=== PATIENT | female | born 1945 | race Caucasian/White ===

== ENCOUNTER 2021-04-02 07:39 | Inpatient (IN) | payer MEDICARE, OTHER ==
[2021-03-26 14:38] LABS: BASOPHILS % (AUTO) 0.6 % (0-1); EOSINOPHILS # (AUTO) 0.2 X10'3 (0-0.9); EOSINOPHILS % (AUTO) 4.2 % (0-6); LYMPHOCYTES # (AUTO) 1.3 X10'3 (1.1-4.8); LYMPHOCYTES % (AUTO) 23.8 % (21-51); MEAN CORPUSCULAR HEMOGLOBIN 30.8 PG (27.0-31.0); MEAN CORPUSCULAR HGB CONC 34.4 g/dL (33.0-36.5); MEAN CORPUSCULAR VOLUME 89.5 FL (78-98); MEAN PLATELET VOLUME 7.1 FL (7.4-10.4); MONOCYTES # (AUTO) 0.5 X10'3 (0-0.9); MONOCYTES % (AUTO) 9.4 % (2-12); NEUTROPHILS # (AUTO) 3.4 X10'3 (1.8-7.7); PRE OP HEMATOCRIT 33.6 % (35.0-45.0); PRE OP HEMOGLOBIN 11.6 g/dL (12.0-16.0); PRE OP PLATELET COUNT 359 X10'3 (140-440); RED BLOOD COUNT 3.75 X10'6 (4.20-5.60); RED CELL DISTRIBUTION WIDTH 12.8 % (11.5-14.5)
[2021-03-26 14:53] LABS: ALBUMIN 3.9 G/DL (3.4-5.0); ALBUMIN/GLOBULIN RATIO 1.1 (1.1-1.5); ALKALINE PHOSPHATASE 61 IU/L (46-116); BLOOD UREA NITROGEN 12 MG/DL (7-18); BUN/CREATININE RATIO 18.8 (6.6-38.0); CALCIUM 8.8 MG/DL (8.5-10.1); CHLORIDE 104 MMOL/L (99-107); CREATININE 0.64 MG/DL (0.40-0.90); PRE OP ALT 26 U/L (30-65); PRE OP ANION GAP 8 (8-16); PRE OP AST 19 U/L (10-37); PRE OP BILIRUB, TOTAL 0.3 MG/DL (0.0-1.0); PRE OP GLUCOSE 93 MG/DL (70-104); PRE OP POTASSIUM 3.9 MMOL/L (3.4-5.1); PRE OP SODIUM 140 MMOL/L (135-145); TOTAL CARBON DIOXIDE 27.7 MMOL/L (24-32); TOTAL PROTEIN 7.5 G/DL (6.4-8.2); eGFR > 90 ML/MIN
[~2021-04-02] VITALS: Ht 163.8 cm; Wt 56.7 kg
[2021-04-02] VITALS (20 sets, daily range): BP systolic 94–126; BP diastolic 51–78
[~2021-04-02 07:39] MED LIST: ACET-1025 PO; ASPI-612 PO; BIOT1CAP3 PO; CALC-1215 PO; CITA20TA27 PO; DICL20GE TOP; ESTR1VAG VG; IBUP-1984 PO; LAMO100T40 PO; MULT-1085 PO; VANCOMYCIN INJ 1000 MG in NORMAL SALINE 250ml IV.SOLN IV ONE; ceFAZolin 2gm in dextrose, iso 100 ML IV ONE; famotidine 20mg tablet PO ONE; ringers solution, lacted 1,000 ML IV SCH; tranexamic acid 650mg tablet PO ONE
[2021-04-02] MEDS ORDERED: fentaNYL/PF 50MCG/1 ML 2ML syringe ONE (10:22)
[2021-04-02] MEDS ORDERED: MIDAZolam 1 MG/ML 5ML VIAL ONE (10:48)
[2021-04-02] MEDS ORDERED: propofol inj 20 ML IV ONE ×2 (10:50)
[2021-04-02] MEDS ORDERED: 0.9 % SODIUM CHLORIDE 10 ML VIAL ONE ×2 (10:50)
[2021-04-02] MEDS ORDERED: ROPIVAcaine 0.5% (5mg/ml) 30ml vial ONE ×2 (10:50→10:51)
[2021-04-02] MEDS ORDERED: ondansetron/PF 4mg/2ml inj ONE (10:51)
[2021-04-02] MEDS ORDERED: dexamethasone sod phosphate 4mg/ml inj. ONE (10:51)
[2021-04-02] MEDS ORDERED: ketorolac trometh. 30mg/ml inj. ONE (10:51)
[2021-04-02] MEDS ORDERED: ePHEDrine 50MG/ML INJ. ONE (11:00)
[2021-04-02] MEDS ORDERED: ringers solution, lacted 1,000 ML IV SCH (11:15)
[2021-04-02] MEDS ORDERED: morphine 2 MG/ML inj. syringe IV PRN (11:15)
[2021-04-02] MEDS ORDERED: acetaminophen 1,000mg/100ml IV 100 ML IV PRN (11:15)
[2021-04-02] MEDS ORDERED: HYDROmorphone/PF 0.2 MG/ML SYRINGE IV PRN ×2 (11:15)
[2021-04-02] MEDS ORDERED: hydrALAZINE 20mg/ml inj. IV PRN (11:15)
[2021-04-02] MEDS ORDERED: labetalol 20mg/4ml (5mg/ml) syringe IV PRN (11:15)
[2021-04-02] MEDS ORDERED: morphine 4 MG/ML inj SYRINge IV PRN (11:15)
[2021-04-02] MEDS ORDERED: ondansetron/PF 4mg/2ml inj IV PRN ×2 (11:15→12:55)
[2021-04-02] MEDS ORDERED: meperidine/PF 25mg/ml syringe IV PRN (11:15)
--- NOTE | 2021-04-02 12:30 | NUR ---
Received from OR via , accompanied by Anesthesiologist and report given by Anesthesiolgist. patient a&ox4, denies pain, v/s wnl, neurovascular checks intact, 20g piv rfa, scd on, dressing to left knee cdi, sensations at t-11.
[2021-04-02] MEDS ORDERED: ibuprofen tablet 400 MG TABLET PO PRN (12:55)
[2021-04-02] MEDS ORDERED: diphenhydrAMINE 25mg capsule PO PRN ×2 (12:55)
[2021-04-02] MEDS ORDERED: HYDROmorphone 1 mg/ml syringe IV PRN (12:55)
[2021-04-02] MEDS ORDERED: acetaminophen 325mg tablet PO PRN (12:55)
[2021-04-02] MEDS ORDERED: HYDROmorphone inj. 0.5 MG/0.5 ML DISP.SYRIN IV PRN (12:55)
[2021-04-02] MEDS ORDERED: ESTRADIOL VG SCH (12:55)
[2021-04-02] MEDS ORDERED: non-formulary drug (Acetaminophen (Tylenol Extra Strength) 2 TAB) PO PRN (12:55)
[2021-04-02] MEDS ORDERED: magnesium hydroxide 30ml (MOM) UD suspension PO PRN (12:55)
[2021-04-02] MEDS ORDERED: DICLOFENAC 1% GEL TOP PRN (12:55)
[2021-04-02] MEDS ORDERED: bisacodyl 10mg suppository rectal RC PRN (12:55)
--- NOTE | 2021-04-02 14:10 | NUR ---
Patient in room [facility] 346B. I have received report from RENÉ SHORT FROM [facility] and had the opportunity to ask questions and assume patient care.
--- NOTE | 2021-04-02 14:20 | NUR ---
patient a&ox4, denies pain, v/s wnl, neurovascular checks intact, 20g piv rfa, scd on, dressing to left knee cdi, FULL sensations NOW. PATIENT TAKEN TO 346B WITH ALL BELONGINGS AND HOOKED UP TO MONITORS IN ROOM AND REPORT GIVEN BARBI MERRITT WHO HAS TAKEN OVER PATIENT CARE./
[2021-04-02] MEDS: acetaminophen 325mg tablet PO SCH ×2 (15:08→20:13)
--- NOTE | 2021-04-02 19:36 | NUR ---
Problems reprioritized. Patient report given, questions answered & plan of care reviewed with RENÉ CASTELLANO.
[2021-04-02] MEDS ORDERED: vancomycin/NS 1 GM ADD-VANTAGE 250 ML IV SCH (20:00)
[2021-04-02] MEDS: calcium carbonate/vitamin D3 tablet PO SCH (20:12)
[2021-04-02] MEDS: potassium cl 20mEq in 1/2 NS 1,000 ML IV SCH ×2 (20:12→20:55)
[2021-04-02] MEDS: oxyCODONE IR 5mg (immed. release) tablet PO PRN ×2 (20:16→23:06)
[2021-04-02] MEDS ORDERED: sennosides 8.6mg tablet PO SCH (21:00)
[2021-04-02] MEDS ORDERED: CLONAZEPAM 0.25 MG oral disentigrating tablet (ODT) PO SCH (21:00)
[2021-04-02] MEDS ORDERED: LAMOTRIGINE 100 MG PO SCH (21:00)
[2021-04-03] VITALS: BP 95/47
[2021-04-03] MEDS: acetaminophen 325mg tablet PO SCH ×3 (01:28→13:31)
[2021-04-03 04:00] VITALS: BP 104/55
[2021-04-03] MEDS: potassium cl 20mEq in 1/2 NS 1,000 ML IV SCH ×2 (04:35→06:04)
[2021-04-03] MEDS: oxyCODONE IR 5mg (immed. release) tablet PO PRN ×3 (04:36→13:32)
[2021-04-03 06:20] LABS: BASOPHILS % (AUTO) 0.1 % (0-1); EOSINOPHILS % (AUTO) 0 % (0-6); HEMATOCRIT 26.3 % (35.0-45.0); HEMOGLOBIN 8.8 g/dl (12.0-16.0); LYMPHOCYTES # (AUTO) 0.5 X10'3 (1.1-4.8); LYMPHOCYTES % (AUTO) 4.8 % (21-51); MEAN CORPUSCULAR HEMOGLOBIN 30.5 PG (27.0-31.0); MEAN CORPUSCULAR HGB CONC 33.6 g/dL (33.0-36.5); MEAN CORPUSCULAR VOLUME 90.7 FL (78-98); MEAN PLATELET VOLUME 7.8 FL (7.4-10.4); MONOCYTES # (AUTO) 0.5 X10'3 (0-0.9); MONOCYTES % (AUTO) 4.9 % (2-12); NEUTROPHILS % (AUTO) 90.2 % (42-75); PLATELET COUNT 269 X10'3 (140-440); RED CELL DISTRIBUTION WIDTH 13.1 % (11.5-14.5)
[2021-04-03 06:27] LABS: ANION GAP 9 (8-16); CHLORIDE 105 MMOL/L (99-107); POTASSIUM 4.2 MMOL/L (3.5-5.1); SODIUM 138 MMOL/L (135-145)
--- NOTE | 2021-04-03 06:31 | NUR ---
Problems reprioritized. Patient report given, questions answered & plan of care reviewed with RENÉ Leija.
[2021-04-03 07:00] VITALS: BP 91/54
--- NOTE | 2021-04-03 07:21 | NUR ---
Patient in room [facility] 346b. I have received report from RENÉ CASTELLANO and had the opportunity to ask questions and assume patient care.
[2021-04-03] MEDS ORDERED: CITALOpram 10mg tablet PO SCH (08:00)
[2021-04-03] MEDS ORDERED: multivitamins, therapeutics tablet PO SCH (08:00)
[2021-04-03] MEDS ORDERED: non-formulary drug (Aspirin (Aspir 81) 1 TAB) PO SCH (08:00)
[2021-04-03] MEDS ORDERED: aspirin 325mg tablet PO SCH (08:30)
[2021-04-03] MEDS: calcium carbonate/vitamin D3 tablet PO SCH (08:57)
[2021-04-03 11:00] VITALS: BP 101/76
--- NOTE | 2021-04-03 12:24 | NUR ---
Pt s/p left knee arthroplasty, seen at bedside for written and verbal protein education. Pt reports already having [employer] drinks at home to ensure adequate protein intake following discharge. Pt endorses a good appetite and denies food allergies or difficulty chewing/swallowing. RD contact information provided and pt encouraged to reach out for questions/food preferences. Will remain available. Addendum: 04/03/21 at [address] Amended: Links added.
--- NOTE | 2021-04-03 14:45 | NUR ---
PATIENT STABLE AND APPROPRIATE FOR DISCHARGE, IV REMOVED, EDUCATION GIVEN, NEW MEDS CALLED TO PREFERRED PHARMACY BY DR SINGH'S OFFICE, ALL BELONGINGS SENT WITH PATIENT, PATIENT TAKEN TO LOBBY BY WHEELCHAIR TO AN AWAITING CAR WHERE DAUGHTER WILL TAKE PATIENT HOME
[2021-04-03] MEDS ORDERED: celeCOXIB 100mg capsule PO SCH (20:00)
[2021-04-04] MEDS ORDERED: acetaminophen 325mg tablet PO PRN (12:55)
== END 2021-04-03 14:45 | disposition home or self-care (01) | DRG 470 ==
LOC: PAS IN 07:39 → INTOOBSV 07:39 → UNDOADMOB 07:39 → PAS IN 12:54 → UNDOADMOB 12:54 → OBSVTOIN 14:00 → INTOOBSV 14:00 → SUR 3N 14:25 → PAS IN 14:25 → SUR 3N 14:25 → OBSVTOIN 04-03 13:40 → PAS IN 04-03 13:40 → UNDODISIN 04-03 14:45
PROVIDERS: ADMIT Orthopaedic Surgery; ATTEND Orthopaedic Surgery
PROC: 8E0YXBZ Computer Assisted Procedure of Lower Extremity (ICD-10-PCS; 2021-04-02)
PROC: 8E0Y0CZ Robotic Assisted Procedure of Lower Extremity, Open Approach (ICD-10-PCS; 2021-04-02)
PROC: 0SRD0J9 Replacement of Left Knee Joint with Synthetic Substitute, Cemented, Open Approach (ICD-10-PCS; principal; 2021-04-02 10:18)
DX: M17.12 Unilateral primary osteoarthritis, left knee (principal); M21.162 Varus deformity, not elsewhere classified, left knee
CPT/HCPCS: 36415; 80051; 80053; 82948; 85025; 87081; 97110; 97161; 97530; A4215; A7000; C1713; C1776; G0378; J1100; J1885; J2250; J2405; J2704; J2795; J3010; J3370; J3480; J7120; U0003; U0005